=== PATIENT | female | born 1980 | race Caucasian/White ===

== ENCOUNTER → 2020-09-26 10:14 | Outpatient (CLI) | payer MEDICAID, SELFPAY ==
[2020-09-26 11:10] LABS: Absolute Lymphocyte Count 1.19 X10^3/uL (0.83-4.51); Absolute Neutrophil Count 4.1 X10^3/uL (2.0-7.7); Basophil# 0.04 X10^3/uL; Basophil% 0.7 % (0-1); Eosinophil# 0.06 X10^3/uL; Hematocrit 36.9 % (37-47); Hemoglobin 12.8 g/dL (12.0-15.0); Lymphocyte # 1.19 X10^3/ul (4.0); Mean Corp Hgb Conc 34.7 g/dL (32-36); Mean Corpuscular Hgb 29.3 pg (27.0-32.0); Mean Corpuscular Volume 84.4 fL (81-99); Monocyte# 0.53 X10^3/uL; Monocyte% 8.9 % (0-10); NRBC Flagged by Analyzer 0 % (0-5); Neutrophil # 4.12 X10^3/uL (2.7-7.7); Neutrophil % 69.1 % (47-70); Platelet Count 238 K/mm3 (150-450); RBC Distribution Width CV 12.7 % (11.6-14.6); Red Blood Count 4.37 M/mm3 (4.2-5.4)
[2020-09-26 12:29] LABS: HIV - WCH Non-Reactive (Nonreactive); Hepatitis B Surface Antigen Non-Reactive (Nonreactive); Hepatitis C Antibody Non-Reactive (Nonreactive); Rubella IgG Reactive (Nonreactive)
[2020-09-29 03:06] LABS: Chlamydia By Nucleic Acid AMP Negative (Negative)
[2020-09-29 14:46] LABS: Gonococcus By Nucleic Acid AMP Negative (Negative)
[2020-10-02 21:05] LABS: HPV APTIMA, High Risk Negative (Negative)
[2020-10-03 01:36] LABS: Prenatal RPR NONREACTIVE (NONREACTIVE)
== END ==
PROVIDERS: PCP Internal Medicine; Visit Provider Obstetrics & Gynecology
DX: Z34.81 Encounter for supervision of other normal pregnancy, first trimester (principal); Z11.3 Encounter for screening for infections with a predominantly sexual mode of transmission; Z12.4 Encounter for screening for malignant neoplasm of cervix
CPT/HCPCS: 36415; 85025; 86703; 86762; 86803; 87086; 87088; 87340; 87491; 87591; 87624; 88175; G0145

== ENCOUNTER → 2020-12-31 15:53 | Outpatient (CLI) | payer MEDICAID, SELFPAY ==
[2020-12-31 17:33] LABS: Hematocrit 31.2 % (37-47); Hemoglobin 11.1 g/dL (12.0-15.0); Mean Corp Hgb Conc 35.6 g/dL (32-36); Mean Corpuscular Hgb 31.1 pg (27.0-32.0); Mean Corpuscular Volume 87.4 fL (81-99); Mean Platelet Vol. 11.2 fl (6.2-12.0); Platelet Count 213 K/mm3 (150-450); RBC Distribution Width CV 14.1 % (11.6-14.6); RBC Distribution Width SD 43.7 fl (35.1-43.9); Red Blood Count 3.57 M/mm3 (4.2-5.4); White Blood Count 8.7 K/mm3 (4.4-11.0)
[2020-12-31 18:23] LABS: Glucose Challenge Gest 1H 50g 143 mg/dL (70-140)
== END ==
PROVIDERS: PCP Internal Medicine; Visit Provider Obstetrics & Gynecology
DX: Z34.82 Encounter for supervision of other normal pregnancy, second trimester (principal)
CPT/HCPCS: 36415; 82950; 85027

== ENCOUNTER → 2021-01-02 09:58 | Outpatient (CLI) | payer MEDICAID, SELFPAY ==
[2021-01-02 11:09] LABS: Glucose GTT-Gestation. Fasting 87 mg/dL (<105)
[2021-01-02 13:08] LABS: Glucose GTT-Gestational 2 Hr 176 mg/dL (<165)
[2021-01-02 13:10] LABS: Glucose GTT-Gestational 1 Hr 166 mg/dL (<190)
[2021-01-02 14:17] LABS: Glucose GTT-Gestational 3 Hr 121 L (<145)
== END ==
PROVIDERS: Referring Provider Obstetrics & Gynecology; Visit Provider Obstetrics & Gynecology
DX: O24.912 Unspecified diabetes mellitus in pregnancy, second trimester (principal); Z3A.00 Weeks of gestation of pregnancy not specified
CPT/HCPCS: 36415; 82951; 82952

== ENCOUNTER → 2021-03-25 | Outpatient (CLI) | payer MEDICAID, SELFPAY | END | disposition home or self-care (01) | LOC: LABSPEC 16:00 | PROVIDERS: Visit Provider Obstetrics & Gynecology | DX: Z36.85 Encounter for antenatal screening for Streptococcus B (principal) | CPT/HCPCS: 87081 ==

== ENCOUNTER 2021-04-15 15:50 | Inpatient (IN) | payer MEDICAID, SELFPAY ==
[2021-04-15] VITALS (37 sets, daily range): BP systolic 123–186; BP diastolic 58–83; PULSE 63–122; TEMP 36.2–36.7; O2SAT 83–100; BMI 26.6
[2021-04-15 14:46] LABS: Mucous, Urine 0 SEEN /hpf (<or=2+); Red Blood Cells-Urine 0 SEEN /hpf (0-5)
[2021-04-15 14:48] LABS: Hematocrit 32.8 % (37-47); Hemoglobin 10.8 g/dL (12.0-15.0); Mean Corp Hgb Conc 32.9 g/dL (32-36); Mean Platelet Vol. 11.7 fl (6.2-12.0); Platelet Count 222 K/mm3 (150-450); RBC Distribution Width CV 13.6 % (11.6-14.6); RBC Distribution Width SD 40.1 fl (35.1-43.9); White Blood Count 7.9 K/mm3 (4.4-11.0)
[2021-04-15 14:57] LABS: Color, Urine Yellow (Yellow); Glucose, Dipstick Normal (Normal); Ketone-Dipstick Negative (Negative); Leukocyte Esterase-Dipstick 100 /ul (Negative); Nitrite-Dipstick Negative (Negative); Occult Blood-Urine Negative /ul (Negative); Protein-Dipstick Negative (Negative); Urine Bilirubin Dipstick Negative (Negative); Urine Clarity Clear (Clear); Urine Urobilinogen Normal (Normal)
[2021-04-15 15:01] LABS: Protein, Urine (Random) 13.5 mg/dL (<11.9); Protein:Creat Ratio 332 mg/g CRE (0-200)
[2021-04-15 15:04] LABS: Bacteria 1+ /hpf (None Seen); Squamous Epithelial Cells - UA 0-5 SEEN /hpf (5-10); White Blood Cells 0-5 SEEN /hpf (0-5)
[2021-04-15 15:05] LABS: Amorphous Sediment 1+
[2021-04-15 15:25] LABS: ALB/GLOB Ratio 0.6 RATIO (0.9-2.4); AST(SGOT) 20 U/L (15-37); Alanine Aminotransfer ALT/SGPT 27 U/L (13-56); Albumin, Serum 2.6 g/dL (3.2-5.0); Alkaline Phosphatase 142 U/L (45-117); Anion Gap 6 (5-15); BUN 12 mg/dL (7-18); BUN/Creat Ratio 19.2 RATIO (10-20); Calcium,Total 8.2 mg/dL (8.5-10.1); Chloride 104 mmol/L (98-107); Creatinine, Serum 0.63 mg/dL (0.55-1.02); EST Glomerular Filtration Rate 113 mL/min (>60); Est Glom Filt Rate - Afr Amer 136 mL/min (>60); Estimated Creatinine Clearance 126.53 ml/min; Globulin 4.1 g/dL (2.2-4.2); Glucose 76 mg/dL (74-106); LDH 172 U/L (84-246); Potassium 3.8 mmol/L (3.5-5.1); Protein, Total 6.7 g/dL (6.4-8.2); Sodium Level 135 mmol/L (136-145); Uric Acid 3.8 mg/dL (2.6-6.0)
--- NOTE | 2021-04-15 16:41 | HP.PCM.OB_ITS ---
History and Physical Date of Admission: 04/15/21 Chief complaint: Elevated blood pressures History present illness: 40-year-old G2, P1 at 39 weeks and 1 day with EDGARD: 04/21/2020 1 x 11-week ultrasound arrives from [facility]. In [facility] had elevated blood pressure 160/100. Arrives here with nonsevere range blood pressures and proteinuria. Now diagnosed with preeclampsia without severe features. Denies nausea vomiting, chest pain, shortness of breath, right upper quadrant pain. Patient states good movement. is complicated by AMA, now preeclampsia without severe features Obstetric history: G1: 37 weeks 06/18/2006 female G2: Current Past medical history: None Medications: vitamin, aspirin Past surgical history: Cholecystectomy, wisdom teeth extraction Allergies: No known drug allergies Social history: 23-year pack year history of smoking, no alcohol or drug use Family history: Denies history DVT or PE Review of systems: Besides above pertinent positives a full review of systems was performed and found to be negative Physical exam: Vital signs: Blood pressure 136/80 pulse 75 General: Normal-appearing no acute distress HEENT: Normocytic atraumatic no cervical lymphadenopathy Cardiac/respiratory: Nonlabored breathing, no use of accessory muscles Abdomen: Soft, nontender, gravid Pelvic exam: Cervical exam 3/60/-3. AROM clear fluid Extremities: No peripheral edema normal peripheral pulses Psych: Normal affect normal demeanor nonpressured speech Labs: White blood cell count 7.9, hemoglobin 10.8 hematocrit 32.8% platelets 222. Sodium 135 potassium 3.8. Creatinine 0.63. AST 20 ALT 27. LDH 172. Urine protein creatinine ratio 0.33. Assessment and plan 40-year-old G2, P1 at 39 weeks and 1 day with elevated blood pressures in the office, not in severe range blood pressures here but with proteinuria now with diagnosis of preeclampsia without severe features. For induction of labor for preeclampsia at term. AROM clear fluid. Pitocin induction. -Admit labor and delivery -CEFM -GBS negative -Preeclampsia without severe features: We will continue monitoring blood pressu res and treat if needed. -Routine orders -Anesthesia to see
[2021-04-15] MEDS: Oxytocin 30 units/NS 500 ml 30 UNITS/500 ML IV.SOLN IV (16:46)
[2021-04-15] MEDS: Lactated Ringers 1,000 ML 50 ML IV (16:46)
[2021-04-15] MEDS: Lactated Ringers 500 ML 999 ML IV (18:46)
[2021-04-15] MEDS: fentaNYL-bupivacaine (epidural) 100 ML BAG EPIDURAL (19:51)
[2021-04-15] MEDS: Mag Hydrox/Al Hydrox/Simeth 30 ML UDC PO (20:12)
[2021-04-15] MEDS: Calcium Carbonate 500 MG Tablet PO (22:30)
[2021-04-16] VITALS (16 sets, daily range): BP systolic 127–147; BP diastolic 63–76; PULSE 76–102; RESP 16–18; TEMP 36.1–37.1; O2SAT 97–100
[2021-04-16] MEDS: Oxytocin 30 units/NS 500 ml 30 UNITS/500 ML IV.SOLN 334 UNITS IV (00:40)
--- NOTE | 2021-04-16 00:56 | EX.PCM.OBRPT ---
Vaginal Delivery Findings Description of Procedure: Normal spontaneous vaginal delivery of a viable male , vertex OP. Head and shoulders delivered with ease. Cord cut and clamped. Baby handed off to mom. Placenta delivered via cord traction and fundal massage. Second-degree midline perineal laceration noted and repaired in typical fashion. Bilateral labial lacerations noted and repaired in typical fashion. EBL 300 cc Apgars 8/9
[2021-04-16] MEDS: Ibuprofen 600 MG Tablet PO ×3 (02:01→17:25)
--- NOTE | 2021-04-16 03:07 | NURSING ---
This RN assuming care of patient and infant at this time. Report received from Panchito ALBERTO.
[2021-04-16] MEDS: Senna/Docusate Sodium 1 Tablet PO (08:17)
[2021-04-16] MEDS: Famotidine 20 MG Tablet PO ×2 (10:05→22:26)
[2021-04-16] MEDS: Acetaminophen 500 MG Tablet 1000 MG PO ×2 (13:41→21:19)
[2021-04-17 01:37] VITALS: BP 130/55; PULSE 73; RESP 18
[2021-04-17] MEDS: Acetaminophen 500 MG Tablet 1000 MG PO ×2 (05:24→13:09)
[2021-04-17 07:52] VITALS: BP 135/66; PULSE 87; RESP 14; TEMP 36.8
--- NOTE | 2021-04-17 08:03 | PCM.DC ---
Discharge Instructions Diet Discharge Diet: No restrictions Activity Discharge Activity: Return to Normal Activity, May Drive and May Shower May resume sexual activity in: 4-6 weeks Weight Bearing Status: Weight bearing as tolerated Dressing / Incision Call your doctor if your incision/area has: Continuous Slow Oozing and Foul Smelling Discharge Call your doctor if you observe: Fever of 101 or Higher, Shortness of breath and Chest pain Follow Up Care Please Follow Up With: Alexander Daniel MD When: Follow-up 2 weeks telehealth visit, 4 to 6 weeks visit Test Results: Test results from this visit will be discussed in further detail at your follow-up appointment, if applicable. Discharge Plan Admission Admit Date/Time: 04/15/21 15:50 Attending Provider: Alexander Daniel Primary Care Provider: Care Physician,Micki Primary Discharge Orders/Prescriptions Prescriptions: No Action famotidine [Pepcid] 20 mg Tablet 20 mg PO BID RF: 0 aspirin [Baby Aspirin] 81 mg Tablet,Chewable 81 mg PO DAILY RF: 0 pren vit comb.1-iron cb-FA-DSS 90-1-50 mg Tablet 1 tab PO DAILY RF: 0
--- NOTE | 2021-04-17 08:03 | PCM.PN.OB ---
Subjective Subjective No overnight complaints. Pain well controlled. Objective Data Objective Data Vital Signs: Vital Signs Temp Pulse Resp BP Pulse Ox 98.3 F 87 14 135/66 H 97 04/17/21 07:52 04/17/21 07:52 04/17/21 07:52 04/17/21 07:52 04/16/21 08:30 Oxygen Delivery Method Room Air Weight: 182 lb 15.739 oz Body Mass Index (BMI) 26.6 Intake & Output: Intake and Output for Last 24 Hours 04/15/21 04/16/21 04/17/21 23:59 23:59 23:59 Intake Total 632.13 / 632.13 1386.00 / 1386.00 Output Total 2700 / 2700 1800 / 1800 Balance 632.13 / 632.13 -1314.00 / -1314.00 -1800 / -1800 Lab / Micro Data Result Diagrams: 04/15/21 14:25 04/15/21 14:25 Micro: Microbiology 04/15/21 14:30 Mucosa - Throat Group A Streptococcus Rapid Screen - Preliminary Physical Exam Const alert, oriented x3, no apparent distress and average body habitus HEENT normocephalic and moist oral mucous membranes Head and Scalp: atraumatic Face and Sinus: normal facial exam Neck full ROM Resp normal respiratory effort, no retractions and no use of accessory muscles GI normal to inspection, nondistended, normoactive bowel sounds GI Narrative: Uterus firm and below umbilicus Extremity normal to inspection, full ROM and no clubbing, cyanosis or edema Psych mental status grossly normal, affect normal, speech normal and activity/motor behavior normal Assessment & Plan (1) : PLAN: day 1 status post vaginal delivery at 39 weeks for preeclampsia without severe features. Patient asymptomatic. Overall blood pressures well controlled on no medications. Overnight with urinary retention Colindres catheter placed, will remove this morning. For post void residual via bladder scan. 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
[2021-04-17] MEDS: Ibuprofen 600 MG Tablet PO (08:10)
--- NOTE | 2021-04-17 11:35 | NURSING ---
0800 Colindres Cath out 1000 Prevoid scan 463cc pt able to void ~40cc Post void scan 420cc. Pt encouraged to push fluids and be up walking. 1130 Pt was up walking and voided prior to scan. Able to void 200cc of clear yellow urine in hat. Scanned twice post void one for 200cc and again at 400cc. Dr Daniel called and updated. Would like to have bladder scan at less than 100cc.
[2021-04-17 14:12] VITALS: BP 128/68; PULSE 86; RESP 14; TEMP 36.5
--- NOTE | 2021-04-21 10:13 | NURSING ---
Pt contacted via phone for follow up phone call. Pt is doing well. C/O breast pain due to not and getting engorged. Pt has a headache off and on, denies any visual disturbances. She is taking tylenol and ibuprofen. She is scheduled to see Dr. Daniel for BP check tomorrow. Pt very pleased with her stay at the hospital.
== END 2021-04-17 15:00 | disposition home or self-care (01) | DRG 560 ==
LOC: WP 04-16 00:48 → WPOUT 04-16 09:46
PROVIDERS: Admitting Provider Obstetrics & Gynecology; Referring Provider Obstetrics & Gynecology; Visit Provider Obstetrics & Gynecology
DX: O14.04 Mild to moderate pre-eclampsia, complicating childbirth (principal); Z37.0 Single live birth; Z3A.39 39 weeks gestation of pregnancy; Z87.891 Personal history of nicotine dependence; O70.1 Second degree perineal laceration during delivery
CPT/HCPCS: 59025; 59050; 80053; 81001; 82570; 83615; 84156; 84550; 85027; 86850; 86900; 86901; 87880; 99218; J7120; G0378